=== PATIENT | female | born 1940 | race American Indian/Alaskan Native ===

== ENCOUNTER → 2021-02-24 | Outpatient (CLI) | payer MEDICARE, BC ==
[2021-02-24 10:40] LABS: Basophils # (auto) 0.1 10 ^3/uL (0-0.2); Basophils % (auto) 1.7 % (0.0-2.0); Eosinophils # (auto) 0.1 10 ^3/uL (0-0.8); Eosinophils % (auto) 3.1 % (0.0-7.0); Hematocrit 40.8 % (36.0-46.0); Hemoglobin 12.9 g/dL (12.2-16.2); Lymphocytes % (auto) 31.2 % (10.0-50.0); Mean Corpuscular Hemoglobin 30.3 pg (28.0-32.0); Mean Corpuscular Hgb Conc. 31.7 g/dL (32.0-36.0); Mean Corpuscular Volume 95.4 fL (80.0-100.0); Monocytes # (auto) 0.3 10 ^3/uL (0-1.3); Monocytes % (auto) 9.1 % (0.0-12.0); Neutrophils # (auto) 1.8 10 ^3/uL (1.6-8.6); Neutrophils % (auto) 54.9 % (37.0-80.0); Nucleated Red Blood Cells % 0.2 %; Platelet Count (auto) 141 10^3/uL (140-450); Red Blood Cells 4.28 10^6/uL (4.0-5.20); Red Cell Distribution Width 15.5 % (11.8-14.3); White Blood Cell 3.2 10^3/uL (4.4-10.8)
[2021-02-24 11:39] LABS: Albumin 2.9 g/dL (3.4-5.0); Calcium 9.7 mg/dL (8.5-10.1); Potassium 3.6 mmol/L (3.5-5.1)
[2021-02-24 11:46] LABS: BUN/Creatinine Ratio 16.3; Bilirubin, Total 0.9 mg/dL (0.2-1.0); Total Protein 7.1 g/dL (6.4-8.2)
[2021-02-24 11:47] LABS: Free T4 (Free Thyroxine) 1.04 ng/dL (0.89-1.76)
[2021-02-24 11:48] LABS: Folate (Folic Acid) 8.58 ng/mL (5.38-24)
[2021-02-24 15:48] LABS: Urine Bacteria NONE SEEN /hpf (None Seen); Urine Blood Negative /uL (Negative); Urine Hyaline Cast FEW /lpf (0 - 2); Urine Specific Gravity 1.012 (1.001-1.035); Urine WBC 1 /hpf (0 - 5)
== END | disposition home or self-care (01) ==
LOC: LAB 10:17
PROVIDERS: ATTEND Internal Medicine
DX: I11.0 Hypertensive heart disease with heart failure (principal); I50.9 Heart failure, unspecified; R35.1 Nocturia; E11.9 Type 2 diabetes mellitus without complications
CPT/HCPCS: 36415; 80053; 80061; 81001; 82607; 82746; 83036; 84439; 84443; 85025; 85652

== ENCOUNTER 2021-03-13 12:41 | Inpatient (IN) | payer MEDICARE, BC ==
[~2021-03-13] VITALS: Ht 162.6 cm; Wt 63.5 kg
[2021-03-13 16:05] LABS: Basophils # (auto) 0 10 ^3/uL (0-0.2); Basophils % (auto) 0.8 % (0.0-2.0); Eosinophils # (auto) 0.1 10 ^3/uL (0-0.8); Eosinophils % (auto) 1.7 % (0.0-7.0); Hematocrit 39.8 % (36.0-46.0); Hemoglobin 12.9 g/dL (12.2-16.2); Lymphocytes # (auto) 0.9 10 ^3/uL (0.4-5.4); Lymphocytes % (auto) 25.1 % (10.0-50.0); Mean Corpuscular Hemoglobin 30.6 pg (28.0-32.0); Mean Corpuscular Hgb Conc. 32.4 g/dL (32.0-36.0); Mean Corpuscular Volume 94.5 fL (80.0-100.0); Monocytes # (auto) 0.3 10 ^3/uL (0-1.3); Monocytes % (auto) 8.6 % (0.0-12.0); Neutrophils # (auto) 2.2 10 ^3/uL (1.6-8.6); Neutrophils % (auto) 63.8 % (37.0-80.0); Nucleated Red Blood Cells % 0.2 %; Platelet Count (auto) 117 10^3/uL (140-450); Red Blood Cells 4.21 10^6/uL (4.0-5.20); Red Cell Distribution Width 15.9 % (11.8-14.3); White Blood Cell 3.4 10^3/uL (4.4-10.8)
[2021-03-13 16:15] LABS: BUN/Creatinine Ratio 14.5; Calcium 9.8 mg/dL (8.5-10.1)
[2021-03-13] MEDS: DOBUTamine 1000MCG/ML 250 ML IV SCH (16:15)
[2021-03-13 16:42] VITALS: BP 110/72
[2021-03-13] MEDS ORDERED: POTA-220 PO (18:43)
[2021-03-13] MEDS ORDERED: ACET650T12 PO (18:43)
[2021-03-13] MEDS ORDERED: TOPI100T29 PO (18:43)
[2021-03-13] MEDS ORDERED: PARO10TA93 PO (18:43)
[2021-03-13] MEDS ORDERED: FURO40TA4 PO (18:43)
[2021-03-13] MEDS ORDERED: SODIENE35 RE (18:43)
[2021-03-13] MEDS ORDERED: LISI2.5T47 PO (18:43)
[2021-03-13] MEDS ORDERED: AMIO200T33 PO (18:43)
[2021-03-13] MEDS ORDERED: MIRT1TAB38 PO (18:43)
[2021-03-13] MEDS ORDERED: CARV6.2551 PO (18:43)
[2021-03-13] MEDS ORDERED: ONDA-144 SL (18:43)
[2021-03-13] MEDS ORDERED: CHOL20007 PO (18:43)
[2021-03-13] MEDS ORDERED: APIX2.5T PO (18:43)
[2021-03-13] MEDS ORDERED: THYR60TA2 PO (18:43)
[2021-03-13] MEDS: MIRTAZAPINE 30 MG TAB PO SCH (21:51)
[2021-03-13] MEDS: CARVEDILOL 3.125 MG TAB PO SCH (21:51)
[2021-03-13] MEDS: TOPIRAMATE 100 MG TAB PO SCH (21:51)
[2021-03-13 22:00] VITALS: BP 115/82
[2021-03-13] MEDS ORDERED: DULoxetine HCL 30 MG CAP PO SCH (22:00)
[2021-03-14 05:00] VITALS: BP 107/74
[2021-03-14 09:00] VITALS: BP 127/85
[2021-03-14] MEDS: SACUBITRIL-VALSARTAN 24mg/26mg TAB PO SCH (10:31)
[2021-03-14] MEDS: DOCUSATE SOD 100 MG CAP PO SCH (10:31)
[2021-03-14] MEDS: CARVEDILOL 3.125 MG TAB PO SCH ×3 (10:31→21:22)
[2021-03-14] MEDS: PARoxetine 20 MG TAB PO SCH (10:31)
[2021-03-14] MEDS: FUROSEMIDE 40 MG/4 ML VIAL IV SCH (10:32)
[2021-03-14] MEDS: AMIODARONE HCL 200 MG TAB PO SCH (10:32)
[2021-03-14] MEDS: POTASSIUM CHL 20 Meq TABLET PO SCH (10:32)
[2021-03-14] MEDS: DIGOXIN 0.125 MG TAB PO SCH (10:33)
[2021-03-14 13:00] VITALS: BP 120/70
[2021-03-14] MEDS: DOBUTamine 1000MCG/ML 250 ML IV SCH (16:24)
[2021-03-14 16:43] VITALS: BP 116/78
[2021-03-14] MEDS ORDERED: TEMAZEPAM 15 MG CAP PO PRN (17:00)
[2021-03-14] MEDS: TOPIRAMATE 100 MG TAB PO SCH (21:22)
[2021-03-14] MEDS: MIRTAZAPINE 30 MG TAB PO SCH (21:23)
[2021-03-14 22:00] VITALS: BP 129/77
[2021-03-15 05:00] VITALS: BP 109/74
[2021-03-15 08:57] VITALS: BP 138/84
[2021-03-15] MEDS: DOCUSATE SOD 100 MG CAP PO SCH (10:12)
[2021-03-15] MEDS: DIGOXIN 0.125 MG TAB PO SCH (10:13)
[2021-03-15] MEDS: POTASSIUM CHL 20 Meq TABLET PO SCH (10:14)
[2021-03-15] MEDS: CARVEDILOL 3.125 MG TAB PO SCH ×2 (10:14→21:43)
[2021-03-15] MEDS: AMIODARONE HCL 200 MG TAB PO SCH (10:14)
[2021-03-15] MEDS: SACUBITRIL-VALSARTAN 24mg/26mg TAB PO SCH (10:14)
[2021-03-15] MEDS: PARoxetine 20 MG TAB PO SCH (10:15)
[2021-03-15] MEDS: FUROSEMIDE 40 MG/4 ML VIAL IV SCH (10:15)
[2021-03-15 12:54] VITALS: BP 124/80
[2021-03-15 16:57] VITALS: BP 129/66
[2021-03-15] MEDS: DOBUTamine 1000MCG/ML 250 ML IV SCH (17:29)
[2021-03-15] MEDS: TOPIRAMATE 100 MG TAB PO SCH (21:43)
[2021-03-15] MEDS: MIRTAZAPINE 30 MG TAB PO SCH (21:43)
[2021-03-15 22:00] VITALS: BP 110/69
[2021-03-16 05:00] VITALS: BP 130/73
[2021-03-16 09:16] VITALS: BP 121/71
[2021-03-16] MEDS: FUROSEMIDE 40 MG/4 ML VIAL IV SCH ×2 (10:06→17:29)
[2021-03-16] MEDS: POTASSIUM CHL 20 Meq TABLET PO SCH (10:06)
[2021-03-16] MEDS: AMIODARONE HCL 200 MG TAB PO SCH (10:06)
[2021-03-16] MEDS: PARoxetine 20 MG TAB PO SCH (10:07)
[2021-03-16] MEDS: DIGOXIN 0.125 MG TAB PO SCH (10:07)
[2021-03-16] MEDS: DOCUSATE SOD 100 MG CAP PO SCH (10:07)
[2021-03-16] MEDS: CARVEDILOL 3.125 MG TAB PO SCH ×2 (10:08→22:50)
[2021-03-16] MEDS: SACUBITRIL-VALSARTAN 24mg/26mg TAB PO SCH (10:10)
[2021-03-16 13:02] VITALS: BP 116/63
[2021-03-16 16:27] VITALS: BP 119/56
[2021-03-16] MEDS: DOBUTamine 1000MCG/ML 250 ML IV SCH (17:10)
[2021-03-16 18:05] LABS: Basophils # (auto) 0 10 ^3/uL (0-0.2); Basophils % (auto) 0.9 % (0.0-2.0); Eosinophils # (auto) 0.1 10 ^3/uL (0-0.8); Eosinophils % (auto) 3.9 % (0.0-7.0); Hematocrit 40.7 % (36.0-46.0); Hemoglobin 13.3 g/dL (12.2-16.2); Lymphocytes # (auto) 0.8 10 ^3/uL (0.4-5.4); Lymphocytes % (auto) 26.5 % (10.0-50.0); Mean Corpuscular Hemoglobin 30.5 pg (28.0-32.0); Mean Corpuscular Hgb Conc. 32.8 g/dL (32.0-36.0); Mean Corpuscular Volume 93.1 fL (80.0-100.0); Monocytes # (auto) 0.3 10 ^3/uL (0-1.3); Monocytes % (auto) 9.9 % (0.0-12.0); Neutrophils # (auto) 1.9 10 ^3/uL (1.6-8.6); Neutrophils % (auto) 58.8 % (37.0-80.0); Nucleated Red Blood Cells % 0.1 %; Platelet Count (auto) 133 10^3/uL (140-450); Red Blood Cells 4.37 10^6/uL (4.0-5.20); Red Cell Distribution Width 15.6 % (11.8-14.3); White Blood Cell 3.2 10^3/uL (4.4-10.8)
[2021-03-16 18:19] LABS: BUN/Creatinine Ratio 15.4; Calcium 9.2 mg/dL (8.5-10.1); Potassium 3.9 mmol/L (3.5-5.1)
[2021-03-16 22:00] VITALS: BP 106/52
[2021-03-16] MEDS: MIRTAZAPINE 30 MG TAB PO SCH (22:45)
[2021-03-16] MEDS: TOPIRAMATE 100 MG TAB PO SCH (22:45)
[2021-03-17 05:00] VITALS: BP 110/45
[2021-03-17] MEDS: FUROSEMIDE 40 MG/4 ML VIAL IV SCH ×2 (05:10→18:04)
[2021-03-17 08:39] VITALS: BP 121/59
[2021-03-17] MEDS: DOCUSATE SOD 100 MG CAP PO SCH (09:55)
[2021-03-17] MEDS: AMIODARONE HCL 200 MG TAB PO SCH (09:55)
[2021-03-17] MEDS: SACUBITRIL-VALSARTAN 24mg/26mg TAB PO SCH (09:55)
[2021-03-17] MEDS: CARVEDILOL 3.125 MG TAB PO SCH ×2 (09:56→22:00)
[2021-03-17] MEDS: PARoxetine 20 MG TAB PO SCH (09:56)
[2021-03-17] MEDS: DIGOXIN 0.125 MG TAB PO SCH (09:56)
[2021-03-17] MEDS: POTASSIUM CHL 20 Meq TABLET PO SCH (09:57)
[2021-03-17 10:20] LABS: Basophils # (auto) 0 10 ^3/uL (0-0.2); Eosinophils # (auto) 0.1 10 ^3/uL (0-0.8); Eosinophils % (auto) 3.6 % (0.0-7.0); Hematocrit 44.6 % (36.0-46.0); Mean Corpuscular Hgb Conc. 31.5 g/dL (32.0-36.0); Mean Corpuscular Volume 95.3 fL (80.0-100.0); Monocytes # (auto) 0.4 10 ^3/uL (0-1.3); Monocytes % (auto) 11.4 % (0.0-12.0); Neutrophils # (auto) 2.2 10 ^3/uL (1.6-8.6); Nucleated Red Blood Cells % 0.2 %; Platelet Count (auto) 136 10^3/uL (140-450); Red Blood Cells 4.67 10^6/uL (4.0-5.20); Red Cell Distribution Width 16.1 % (11.8-14.3); White Blood Cell 3.7 10^3/uL (4.4-10.8)
[2021-03-17 10:51] LABS: Anion Gap 8 (5-15); BUN/Creatinine Ratio 17.6; Blood Urea Nitrogen 26 mg/dL (7-18); Calcium 9.2 mg/dL (8.5-10.1); Carbon Dioxide 25 mmol/L (21-32); Chloride 106 mmol/L (98-107); GFR African American 44 mL/min; GFR Non-African American 36 mL/min; Glucose 88 mg/dL (74-106); Potassium 3.7 mmol/L (3.5-5.1); Sodium 139 mmol/L (136-145)
[2021-03-17 12:36] VITALS: BP 109/46
[2021-03-17] MEDS: DOBUTamine 1000MCG/ML 250 ML IV SCH (16:15)
[2021-03-17 16:34] VITALS: BP 118/56
[2021-03-17 22:00] VITALS: BP 135/59
[2021-03-17] MEDS: TOPIRAMATE 100 MG TAB PO SCH (22:00)
[2021-03-17] MEDS: MIRTAZAPINE 30 MG TAB PO SCH (22:01)
[2021-03-18 05:00] VITALS: BP 135/63
[2021-03-18] MEDS: FUROSEMIDE 40 MG/4 ML VIAL IV SCH (06:12)
[2021-03-18 08:12] VITALS: BP 110/51
[2021-03-18] MEDS: DOCUSATE SOD 100 MG CAP PO SCH (09:45)
[2021-03-18] MEDS: CARVEDILOL 3.125 MG TAB PO SCH (09:46)
[2021-03-18] MEDS: AMIODARONE HCL 200 MG TAB PO SCH (09:46)
[2021-03-18] MEDS: POTASSIUM CHL 20 Meq TABLET PO SCH (09:47)
[2021-03-18] MEDS: SACUBITRIL-VALSARTAN 24mg/26mg TAB PO SCH (09:47)
[2021-03-18] MEDS: DIGOXIN 0.125 MG TAB PO SCH (09:48)
[2021-03-18] MEDS: PARoxetine 20 MG TAB PO SCH (09:48)
[2021-03-18 12:35] VITALS: BP 133/66
[2021-03-18] MEDS: DOBUTamine 1000MCG/ML 250 ML IV SCH (16:15)
[2021-03-18 16:24] VITALS: BP 115/57
[2021-03-18 16:42] VITALS: BP 115/57
== END 2021-03-18 18:20 | disposition home health service (06) | DRG 292 ==
LOC: TELE-WESTW 13:15
PROVIDERS: ADMIT Internal Medicine Cardiovascular Disease; ATTEND Internal Medicine Cardiovascular Disease
DX: I50.21 Acute systolic (congestive) heart failure (principal); N17.9 Acute kidney failure, unspecified; R65.10 Systemic inflammatory response syndrome (SIRS) of non-infectious origin without acute organ dysfunction; I25.5 Ischemic cardiomyopathy; I25.10 Atherosclerotic heart disease of native coronary artery without angina pectoris; J44.9 Chronic obstructive pulmonary disease, unspecified; Z20.822 Contact with and (suspected) exposure to COVID-19; Z95.810 Presence of automatic (implantable) cardiac defibrillator; Z88.8 Allergy status to other drugs, medicaments and biological substances; Z82.49 Family history of ischemic heart disease and other diseases of the circulatory system; N18.32 Chronic kidney disease, stage 3b
CPT/HCPCS: 36415; 36600; 71045; 80048; 82805; 83880; 85025; 87426; 93005; 97116; 97530; G0378

== ENCOUNTER → 2021-03-24 | Outpatient (CLI) | payer MEDICARE, BC ==
[~2021-03-24] VITALS: Ht 162.6 cm; Wt 62.1 kg
[~2021-03-24] MED LIST: ACET650T12 PO; ADENOSINE 52 MG in GIVE UN-DILUTED 0 ML IV ONE; ADENOSINE 90 MG/30 ML INJ IV ONE; AMIO200T33 PO; APIX2.5T PO; CARV6.2551 PO; CHOL20007 PO; FURO40TA4 PO; LISI2.5T47 PO; MIRT1TAB38 PO; ONDA-144 SL; PARO10TA93 PO; POTA-220 PO; SODIENE35 RE; THYR60TA2 PO; TOPI100T29 PO
== END | disposition home or self-care (01) ==
LOC: Rad HDHVI 13:03
PROVIDERS: ATTEND Internal Medicine Cardiovascular Disease
DX: I11.0 Hypertensive heart disease with heart failure (principal); I48.20 Chronic atrial fibrillation, unspecified; E11.21 Type 2 diabetes mellitus with diabetic nephropathy; R07.89 Other chest pain; E78.5 Hyperlipidemia, unspecified; I50.21 Acute systolic (congestive) heart failure; Z82.49 Family history of ischemic heart disease and other diseases of the circulatory system
CPT/HCPCS: 78452; 93005; 96374; 96375; A9500; J0153

== ENCOUNTER → 2021-04-01 | Outpatient (CLI) | payer MEDICARE, BC ==
[~2021-04-01] MED LIST changes: -ADENOSINE 52 MG in GIVE UN-DILUTED 0 ML IV ONE; -ADENOSINE 90 MG/30 ML INJ IV ONE; +CYANOCOBALAMIN (B-12) 1000 MCG/1 ML VIAL IM ONE; +CYANOCOBALAMIN (B-12) 1000 MCG/1 ML VIAL ONE
[2021-04-01 10:00] VITALS: BP 115/52
[2021-04-01 12:03] LABS: Basophils # (auto) 0 10 ^3/uL (0-0.2); Basophils % (auto) 0.8 % (0.0-2.0); Eosinophils # (auto) 0.1 10 ^3/uL (0-0.8); Eosinophils % (auto) 3.2 % (0.0-7.0); Hematocrit 40.3 % (36.0-46.0); Hemoglobin 12.9 g/dL (12.2-16.2); Lymphocytes # (auto) 0.8 10 ^3/uL (0.4-5.4); Mean Corpuscular Hgb Conc. 32.1 g/dL (32.0-36.0); Mean Corpuscular Volume 93.4 fL (80.0-100.0); Monocytes # (auto) 0.2 10 ^3/uL (0-1.3); Monocytes % (auto) 6.9 % (0.0-12.0); Neutrophils # (auto) 2.2 10 ^3/uL (1.6-8.6); Neutrophils % (auto) 65.1 % (37.0-80.0); Nucleated Red Blood Cells % 0.4 %; Platelet Count (auto) 139 10^3/uL (140-450); Red Blood Cells 4.31 10^6/uL (4.0-5.20); Red Cell Distribution Width 16.7 % (11.8-14.3); White Blood Cell 3.4 10^3/uL (4.4-10.8)
[2021-04-01 12:16] LABS: Potassium 4.1 mmol/L (3.5-5.1)
[2021-04-01 12:26] LABS: Calcium 9.6 mg/dL (8.5-10.1); Magnesium 2.6 mg/dL (1.6-2.6); Total Protein 7.7 g/dL (6.4-8.2)
== END | disposition home or self-care (01) ==
LOC: CHF HDHVI 09:05
PROVIDERS: ATTEND Internal Medicine Cardiovascular Disease
DX: I13.0 Hypertensive heart and chronic kidney disease with heart failure and stage 1 through stage 4 chronic kidney disease, or unspecified chronic kidney disease (principal); E11.22 Type 2 diabetes mellitus with diabetic chronic kidney disease; I50.23 Acute on chronic systolic (congestive) heart failure; N18.32 Chronic kidney disease, stage 3b; I70.0 Atherosclerosis of aorta; I48.20 Chronic atrial fibrillation, unspecified; E55.9 Vitamin D deficiency, unspecified; D51.9 Vitamin B12 deficiency anemia, unspecified; J44.9 Chronic obstructive pulmonary disease, unspecified; I25.10 Atherosclerotic heart disease of native coronary artery without angina pectoris; I42.8 Other cardiomyopathies; E78.5 Hyperlipidemia, unspecified; Z95.810 Presence of automatic (implantable) cardiac defibrillator
CPT/HCPCS: 36415; 71046; 80053; 82306; 82607; 83036; 83735; 83880; 84443; 85025; 93005; 96372; G0463; J3420

== ENCOUNTER → 2021-04-13 | Outpatient (CLI) | payer MEDICARE, BC ==
[~2021-04-13] MED LIST changes: +ACET325T10 PO; +ALBU1.257 NEB; +BISA-13 PO; +CALC-231 PO; +CARV6.25 PO; -CYANOCOBALAMIN (B-12) 1000 MCG/1 ML VIAL IM ONE; -CYANOCOBALAMIN (B-12) 1000 MCG/1 ML VIAL ONE; +MAGNSUS48 PO; +ONDA-144 PO; -ONDA-144 SL; +SACU1TAB PO
[2021-04-13 11:15] VITALS: BP 127/60
[2021-04-13 11:39] VITALS: BP 118/67
[2021-04-13 12:52] LABS: Basophils # (auto) 0.1 10 ^3/uL (0-0.2); Basophils % (auto) 1.4 % (0.0-2.0); Eosinophils # (auto) 0.1 10 ^3/uL (0-0.8); Eosinophils % (auto) 3.4 % (0.0-7.0); Hematocrit 39.1 % (36.0-46.0); Hemoglobin 12.7 g/dL (12.2-16.2); Lymphocytes # (auto) 1.2 10 ^3/uL (0.4-5.4); Lymphocytes % (auto) 30.4 % (10.0-50.0); Mean Corpuscular Hemoglobin 30.5 pg (28.0-32.0); Mean Corpuscular Hgb Conc. 32.5 g/dL (32.0-36.0); Monocytes # (auto) 0.3 10 ^3/uL (0-1.3); Monocytes % (auto) 7.9 % (0.0-12.0); Neutrophils # (auto) 2.2 10 ^3/uL (1.6-8.6); Neutrophils % (auto) 56.9 % (37.0-80.0); Nucleated Red Blood Cells % 0.1 %; Red Blood Cells 4.16 10^6/uL (4.0-5.20); White Blood Cell 3.9 10^3/uL (4.4-10.8)
[2021-04-13 13:04] LABS: INR 1.18 (0.9-1.15); Partial Thromboplastin Time 28.8 sec (23.0-31.2)
[2021-04-17 09:48] LABS: BUN/Creatinine Ratio 21.5; Calcium 9.1 mg/dL (8.5-10.1); Potassium 4.6 mmol/L (3.5-5.1)
== END | disposition home or self-care (01) ==
LOC: Rad HDHVI 11:02
PROVIDERS: ATTEND Internal Medicine Cardiovascular Disease
DX: Z01.812 Encounter for preprocedural laboratory examination (principal); J90 Pleural effusion, not elsewhere classified; J98.11 Atelectasis; I70.0 Atherosclerosis of aorta; R94.31 Abnormal electrocardiogram [ECG] [EKG]; I48.91 Unspecified atrial fibrillation; I50.9 Heart failure, unspecified
CPT/HCPCS: 36415; 71046; 80048; 85025; 85610; 85730; 93005; G0463

== ENCOUNTER 2021-04-16 07:58 | Day surgery (SDC) | payer MEDICARE, BC ==
[~2021-04-16] VITALS: Ht 162.6 cm; Wt 59.4 kg
[~2021-04-16 07:58] MED LIST changes: -ACET325T10 PO; -CARV6.2551 PO; -CHOL20007 PO; -LISI2.5T47 PO
[2021-04-16] MEDS ORDERED: VANCOMYCIN 1GM/250ML 250 ML IV ONE ×2 (09:00→10:47)
[2021-04-16] MEDS ORDERED: LIDOCAINE 2%HCL (LOCAL ANESTH.) INJ 20ML MDV ONE (10:25)
[2021-04-16] MEDS ORDERED: IOHEXOL 350 MG/ML 100ML IJ ONE (10:25)
[2021-04-16] MEDS ORDERED: ATROPINE SULF 1 MG/10ml SYR ONE (10:46)
[2021-04-16] MEDS ORDERED: fentaNYL CITRATE 100 MCG/2 ML VL ONE (10:46)
[2021-04-16] MEDS ORDERED: VANCOMYCIN HCL 1000 MG VL ONE (10:46)
[2021-04-16] MEDS ORDERED: MIDAZOLAM HCL 1MG/1ML-2 ML VIAL ONE (10:47)
[2021-04-16] MEDS ORDERED: FUROSEMIDE 20 MG/2 ML VIAL ONE (11:36)
[2021-04-16] MEDS ORDERED: GELATIN 1 SPONGE SIZE 50 TOP ONE (11:47)
[2021-04-16] MEDS ORDERED: ONDANSETRON HCL 4 MG/2 ML VIAL ONE (12:28)
[2021-04-16] MEDS ORDERED: ACETAMINOPHEN 500 MG TAB PO PRN (12:45)
[2021-04-16] MEDS ORDERED: ONDANSETRON HCL 4 MG/2 ML VIAL IV PRN (12:45)
[2021-04-16] MEDS ORDERED: ACET325T10 PO (13:13)
== END 2021-04-16 14:55 | disposition home or self-care (01) ==
LOC: CATH 07:58
PROVIDERS: ATTEND Internal Medicine Cardiovascular Disease
DX: Z45.02 Encounter for adjustment and management of automatic implantable cardiac defibrillator (principal); I42.9 Cardiomyopathy, unspecified; R07.89 Other chest pain; I50.20 Unspecified systolic (congestive) heart failure; E11.9 Type 2 diabetes mellitus without complications; I11.0 Hypertensive heart disease with heart failure; J43.9 Emphysema, unspecified; F32.9 Major depressive disorder, single episode, unspecified; Z80.8 Family history of malignant neoplasm of other organs or systems; F99 Mental disorder, not otherwise specified; Z98.890 Other specified postprocedural states; Z79.899 Other long term (current) drug therapy; Z86.73 Personal history of transient ischemic attack (TIA), and cerebral infarction without residual deficits; Z87.891 Personal history of nicotine dependence; Z20.822 Contact with and (suspected) exposure to COVID-19; Z88.8 Allergy status to other drugs, medicaments and biological substances
CPT/HCPCS: 33225; 33249; 71045; 93005; C1769; C1882; C1887; C1892; C1895; C1898; J1940; J2250; J2405; J3010; J3370; J7030; Q9967; U0003; 99152; 99153

== ENCOUNTER → 2021-04-17 | Outpatient (CLI) | payer MEDICARE, BC ==
[~2021-04-17] MED LIST changes: +ACET325T10 PO; -ACET650T12 PO
== END | disposition home or self-care (01) ==
LOC: Rad HDHVI 08:57
PROVIDERS: ATTEND Internal Medicine Cardiovascular Disease
DX: R06.89 Other abnormalities of breathing (principal); I51.7 Cardiomegaly; I70.0 Atherosclerosis of aorta; M85.80 Other specified disorders of bone density and structure, unspecified site; T81.9XXA Unspecified complication of procedure, initial encounter
CPT/HCPCS: 71046

== ENCOUNTER → 2021-04-21 | Outpatient (CLI) | payer MEDICARE, BC ==
[~2021-04-21] MED LIST changes: +CYANOCOBALAMIN (B-12) 1000 MCG/1 ML VIAL IM ONE; +CYANOCOBALAMIN (B-12) 1000 MCG/1 ML VIAL ONE
[2021-04-21 11:07] VITALS: BP 95/56
[2021-04-21 11:36] LABS: Basophils # (auto) 0 10 ^3/uL (0-0.2); Basophils % (auto) 1.4 % (0.0-2.0); Eosinophils # (auto) 0.1 10 ^3/uL (0-0.8); Eosinophils % (auto) 3.1 % (0.0-7.0); Hematocrit 37.5 % (36.0-46.0); Hemoglobin 12.2 g/dL (12.2-16.2); Lymphocytes # (auto) 0.8 10 ^3/uL (0.4-5.4); Lymphocytes % (auto) 25.3 % (10.0-50.0); Mean Corpuscular Hemoglobin 30.2 pg (28.0-32.0); Mean Corpuscular Hgb Conc. 32.6 g/dL (32.0-36.0); Mean Corpuscular Volume 92.6 fL (80.0-100.0); Monocytes # (auto) 0.3 10 ^3/uL (0-1.3); Monocytes % (auto) 9.5 % (0.0-12.0); Neutrophils # (auto) 1.8 10 ^3/uL (1.6-8.6); Neutrophils % (auto) 60.7 % (37.0-80.0); Nucleated Red Blood Cells % 0.2 %; Platelet Count (auto) 113 10^3/uL (140-450); Red Blood Cells 4.05 10^6/uL (4.0-5.20); Red Cell Distribution Width 16.6 % (11.8-14.3)
[2021-04-21 11:52] LABS: Calcium 9.2 mg/dL (8.5-10.1)
[2021-04-21 11:56] LABS: BUN/Creatinine Ratio 22.4; Bilirubin, Total 0.8 mg/dL (0.2-1.0); Total Protein 7.1 g/dL (6.4-8.2)
== END | disposition home or self-care (01) ==
LOC: CHF HDHVI 10:22
PROVIDERS: ATTEND Internal Medicine Cardiovascular Disease
DX: I13.0 Hypertensive heart and chronic kidney disease with heart failure and stage 1 through stage 4 chronic kidney disease, or unspecified chronic kidney disease (principal); E11.22 Type 2 diabetes mellitus with diabetic chronic kidney disease; I50.23 Acute on chronic systolic (congestive) heart failure; N18.32 Chronic kidney disease, stage 3b; R53.83 Other fatigue; R63.0 Anorexia; I25.10 Atherosclerotic heart disease of native coronary artery without angina pectoris; I48.20 Chronic atrial fibrillation, unspecified; J44.9 Chronic obstructive pulmonary disease, unspecified; I42.8 Other cardiomyopathies; E78.5 Hyperlipidemia, unspecified; Z95.810 Presence of automatic (implantable) cardiac defibrillator
CPT/HCPCS: 36415; 80053; 83880; 85025; 96372; G0463; J3420

== ENCOUNTER → 2021-05-06 | Outpatient (CLI) | payer MEDICARE, BC ==
[~2021-05-06] MED LIST changes: +FUROSEMIDE 20 MG/2 ML VIAL IV ONE; +FUROSEMIDE 20 MG/2 ML VIAL ONE; +FUROSEMIDE 40 MG/4 ML VIAL ONE; +POTASSIUM EFFERVESENT TAB 25 MEQ ONE; +POTASSIUM EFFERVESENT TAB 25 MEQ PO ONE
[2021-05-06 10:20] LABS: Basophils # (auto) 0 10 ^3/uL (0-0.2); Basophils % (auto) 0.9 % (0.0-2.0); Eosinophils # (auto) 0.1 10 ^3/uL (0-0.8); Eosinophils % (auto) 2.3 % (0.0-7.0); Lymphocytes # (auto) 0.8 10 ^3/uL (0.4-5.4); Lymphocytes % (auto) 27.2 % (10.0-50.0); Mean Corpuscular Hemoglobin 29.6 pg (28.0-32.0); Mean Corpuscular Hgb Conc. 32.3 g/dL (32.0-36.0); Mean Corpuscular Volume 91.6 fL (80.0-100.0); Monocytes # (auto) 0.3 10 ^3/uL (0-1.3); Monocytes % (auto) 8.8 % (0.0-12.0); Neutrophils # (auto) 1.9 10 ^3/uL (1.6-8.6); Neutrophils % (auto) 60.8 % (37.0-80.0); Nucleated Red Blood Cells % 0.3 %; Red Blood Cells 4.04 10^6/uL (4.0-5.20); Red Cell Distribution Width 16.1 % (11.8-14.3); White Blood Cell 3.1 10^3/uL (4.4-10.8)
[2021-05-06 10:32] LABS: Potassium 4.1 mmol/L (3.5-5.1)
[2021-05-06 11:45] VITALS: BP 98/62
== END | disposition home or self-care (01) ==
LOC: CHF HDHVI 09:14
PROVIDERS: ATTEND Internal Medicine Cardiovascular Disease
DX: I13.0 Hypertensive heart and chronic kidney disease with heart failure and stage 1 through stage 4 chronic kidney disease, or unspecified chronic kidney disease (principal); E11.22 Type 2 diabetes mellitus with diabetic chronic kidney disease; I50.23 Acute on chronic systolic (congestive) heart failure; N18.32 Chronic kidney disease, stage 3b; I48.20 Chronic atrial fibrillation, unspecified; I25.10 Atherosclerotic heart disease of native coronary artery without angina pectoris; I42.8 Other cardiomyopathies; E78.5 Hyperlipidemia, unspecified; J43.9 Emphysema, unspecified; F32.9 Major depressive disorder, single episode, unspecified; Z95.810 Presence of automatic (implantable) cardiac defibrillator; Z87.891 Personal history of nicotine dependence; Z86.73 Personal history of transient ischemic attack (TIA), and cerebral infarction without residual deficits; Z79.899 Other long term (current) drug therapy
CPT/HCPCS: 36415; 82565; 83880; 84132; 84520; 85025; 85049; 96372; 96374; G0463; J1940; J3420

== ENCOUNTER → 2021-05-14 | Outpatient (CLI) | payer MEDICARE, BC ==
[2021-05-14] VITALS (7 sets, daily range): BP systolic 95–109; BP diastolic 62–74
[~2021-05-14] MED LIST changes: +ACET650T12 PO; +CARV6.2551 PO; +CHOL20007 PO; -CYANOCOBALAMIN (B-12) 1000 MCG/1 ML VIAL IM ONE; -CYANOCOBALAMIN (B-12) 1000 MCG/1 ML VIAL ONE; +DOBUTamine 1000MCG/ML 250 ML IV ONE; -FUROSEMIDE 20 MG/2 ML VIAL IV ONE; -FUROSEMIDE 20 MG/2 ML VIAL ONE; -FUROSEMIDE 40 MG/4 ML VIAL ONE; +FUROSEMIDE INJECTION 10 ML ONE; +FUROSEMIDE INJECTION 100 MG in SODIUM CHL 0.9% 100 ML IV ONE; +LISI2.5T47 PO; +POTASSIUM CHL 10 Meq TABLET PO ONE; +POTASSIUM CHL 20 Meq TABLET PO ONE; -POTASSIUM EFFERVESENT TAB 25 MEQ ONE; -POTASSIUM EFFERVESENT TAB 25 MEQ PO ONE
[2021-05-14 15:47] LABS: BUN/Creatinine Ratio 20.4; Potassium 3.9 mmol/L (3.5-5.1)
== END | disposition home or self-care (01) ==
LOC: CHF HDHVI 12:51
PROVIDERS: ATTEND Internal Medicine Cardiovascular Disease
DX: I13.0 Hypertensive heart and chronic kidney disease with heart failure and stage 1 through stage 4 chronic kidney disease, or unspecified chronic kidney disease (principal); E11.22 Type 2 diabetes mellitus with diabetic chronic kidney disease; I50.23 Acute on chronic systolic (congestive) heart failure; N18.32 Chronic kidney disease, stage 3b; R53.83 Other fatigue; J43.9 Emphysema, unspecified; I25.10 Atherosclerotic heart disease of native coronary artery without angina pectoris; I48.20 Chronic atrial fibrillation, unspecified; I42.8 Other cardiomyopathies; E78.5 Hyperlipidemia, unspecified; F32.9 Major depressive disorder, single episode, unspecified; Z79.899 Other long term (current) drug therapy; Z87.891 Personal history of nicotine dependence; Z95.810 Presence of automatic (implantable) cardiac defibrillator; Z86.73 Personal history of transient ischemic attack (TIA), and cerebral infarction without residual deficits
CPT/HCPCS: 36415; 80048; 83880; 96365; 96366; 96368; G0463; J1250; J1940